=== PATIENT | female | born 1955 | race Caucasian/White ===

== ENCOUNTER 2018-12-15 13:00 | Emergency (ER) | payer OTHER, MEDICAID ==
[2018-12-15] MEDS: DEXAMETHASONE 10 MG/ML 1 ML INJ IM (14:02)
[2018-12-15] MEDS: ALBUTEROL 0.5% (NEB) 2.5 MG/0.5 ML AMP INH (14:08)
[2018-12-15] MEDS: IPRATROPIUM (NEB) 0.5 MG/2.5 ML AMP INH (14:09)
== END 2018-12-15 16:09 | disposition home or self-care (01) ==
LOC: FTE 13:00
DX: J45.901 Unspecified asthma with (acute) exacerbation (principal); I10 Essential (primary) hypertension
CPT/HCPCS: 71045; 93005; 94644; 96372; 99284-25